=== PATIENT | female | born 1995 | race African-American/Black ===

== ENCOUNTER 2025-01-23 22:34 | Emergency (ER) | payer BC, SELFPAY ==
--- NOTE | ~2025-01-23 | CT_ITS ---
CT HEAD NON-CONTRAST Clinical History: Frontal headache Comparison: None Technique: Unenhanced axial images skull base to vertex Coronal, sagittal reformats CT images acquired with automatic exposure control for dose reduction DLP: 681 mGy-cm Findings: Sulci, ventricles: Unremarkable. No intracerebral hemorrhage. No evidence acute territorial infarct. No mass effect, midline shift. Bony calvarium intact. Visualized paranasal sinuses: Clear. Mastoid air cells: Clear. Partially empty sella. IMPRESSION: 1. No acute intracranial findings. Reviewed, dictated and finalized at location [facility]. [facility]
[2025-01-23 22:36] VITALS: BP 113/79; PULSE 72; RESP 14; TEMP 36.8; O2SAT 100
[2025-01-24 00:28] VITALS: BP 123/77; PULSE 74; RESP 16; O2SAT 99
[2025-01-24 00:31] VITALS: BP 130/88; PULSE 72; RESP 14; O2SAT 99
[2025-01-24 02:33] VITALS: BP 130/90; PULSE 84; RESP 14; O2SAT 100
--- NOTE | 2025-01-24 03:10 | ED_ITS ---
HPI - General Adult General Chief complaint: Headache Stated complaint: headache Time Seen by Provider: 01/24/25 02:51 History of Present Illness HPI narrative: This is a 29-year-old female presenting for a headache. Patient says for last 2 days she has had a frontal headache. She has checked her blood pressure home for this time is been elevated at . This prompted her to come to the emergency department. Patient says she gets headaches on a weekly basis. They are typically in the frontal region. They are not associated with visual changes. She is not confused or altered. She does not have any fevers chills nausea vomiting diarrhea. Related Data Allergies Allergy/AdvReac Type Severity Reaction Status Date / Time No Known Allergies Allergy Verified 01/23/25 22:43 Exam Narrative: APPEARANCE: No apparent distress. Head: atraumatic. 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 Cranial nerves 2-12 grossly intact. Sensation light touch, motor function cerebellar function intact for 4 extremities. Gait exam was normal. SKIN:: Warm, dry. Normal color PSYCHIATRIC: Normal affect Course Vital Signs Vital signs: Vital Signs Temperature 98.2 F 01/23/25 22:36 Pulse Rate 72 01/23/25 22:36 Respiratory Rate 14 01/23/25 22:36 Blood Pressure 113/79 01/23/25 22:36 Pulse Oximetry 100 01/23/25 22:36 Oxygen Delivery Room Air 01/23/25 22:36 Temperature 98.2 F 01/23/25 22:36 Pulse Rate 84 01/24/25 02:33 Respiratory Rate 14 01/24/25 02:33 Blood Pressure 130/90 01/24/25 02:33 Pulse Oximetry 100 01/24/25 02:33 Oxygen Delivery Room Air 01/23/25 22:36 Medical Decision Making [facility] Narrative Medical decision making narrative: -Course: 29-year-old female presenting with a frontal headache and concerns blood pressure. Here her blood pressures are a safe level. Her headaches are essentially her typical headache and responded to Tylenol. Her neurologic exam is normal. I am very comfortable with the patient following up with her primary care physician for further management of her headaches and possible hypertension. Patient in agreement with plan. Discharged. -DDX includes but is not limited to: Tension headache, migraine, sinus pressure, ICH, idiopathic intracranial hypertension Vital Signs Vital Signs: Vital Signs Temperature 98.2 F 01/23/25 22:36 Pulse Rate 72 01/23/25 22:36 Respiratory Rate 14 01/23/25 22:36 Blood Pressure 113/79 01/23/25 22:36 Pulse Oximetry 100 01/23/25 22:36 Oxygen Delivery Room Air 01/23/25 22:36 Temperature 98.2 F 01/23/25 22:36 Pulse Rate 84 01/24/25 02:33 Respiratory Rate 14 01/24/25 02:33 Blood Pressure 130/90 01/24/25 02:33 Pulse Oximetry 100 01/24/25 02:33 Oxygen Delivery Room Air 01/23/25 22:36 Discharge Plan Discharge Clinical Impression: Headache Patient Disposition: Home Condition: Stable Instructions: Antibiotic Form, Acute Headache (ED) Additional Instructions: You were seen in the ED for a headache. Please take Tylenol as needed. Please follow-up with your primary care physician in regards to your elevated blood pressures. You develop any new symptoms such as severe pain, visual changes or alterations in mental status please return to the ED for re-evaluation. Patient Language: Guamanian Follow-up/Referrals: Bert Eduardo MD [Physician, Family Practice] - 1 Week UNKNOWN,DOCTOR [Primary Care Provider]
--- NOTE | 2025-01-24 03:37 | ED_ITS ---
HPI - General Adult General Chief complaint: Headache Stated complaint: headache Time Seen by Provider: 01/24/25 02:51 History of Present Illness HPI narrative: This is a 21-year-old female presenting with headache. Patient has had a frontal headache for the last 4 days. Patient says that she does not typically get headaches on a she is hypo sleep. Headache is pounding in intensity. She has been taking Tylenol intermittently with some relief. No visual changes. No loss of consciousness. No trauma or fevers. Related Data Allergies Allergy/AdvReac Type Severity Reaction Status Date / Time No Known Allergies Allergy Verified 01/23/25 22:43 Exam Narrative: APPEARANCE: No apparent distress. Head: atraumatic. EYES: EOMI, PERRL NOSE: Atraumatic NECK: Trachea midline RESPIRATORY: No increased rate of breathing CARDIOVASCULAR: RRR, ABDOMINAL: Non-distended MUSCULOSKELETAl: No obvious deformities NEURO: Alert. Cranial nerves 2-12 grossly intact. Sensation light touch, motor function cerebellar function intact for 4 extremities. Gait exam was normal. SKIN:: Warm, dry. Normal color PSYCHIATRIC: Normal affect Course Vital Signs Vital signs: Vital Signs Temperature 98.2 F 01/23/25 22:36 Pulse Rate 72 01/23/25 22:36 Respiratory Rate 14 01/23/25 22:36 Blood Pressure 113/79 01/23/25 22:36 Pulse Oximetry 100 01/23/25 22:36 Oxygen Delivery Room Air 01/23/25 22:36 Temperature 98.2 F 01/23/25 22:36 Pulse Rate 84 01/24/25 02:33 Respiratory Rate 14 01/24/25 02:33 Blood Pressure 130/90 01/24/25 02:33 Pulse Oximetry 100 01/24/25 02:33 Oxygen Delivery Room Air 01/23/25 22:36 Medical Decision Making [facility] Narrative Medical decision making narrative: -Course: 21-year-old female with intermittent headaches presenting for a headache. She says this is different than her typical headache. CT of was obtained which did not reveal any hemorrhage hydrocephalus or mass effect. There was a partially empty sella which can be seen w/ idiopathic intracranial hypertension although she does not have any visual changes or pulsatile tinnitus. Patient will be discharged to follow-up with neurology. Given return precautions. -DDX includes but is not limited to: Migraine, tension headache, sinus headache, intracranial hemorrhage, cerebral mass Vital Signs Vital Signs: Vital Signs Temperature 98.2 F 01/23/25 22:36 Pulse Rate 72 01/23/25 22:36 Respiratory Rate 14 01/23/25 22:36 Blood Pressure 113/79 01/23/25 22:36 Pulse Oximetry 100 01/23/25 22:36 Oxygen Delivery Room Air 01/23/25 22:36 Temperature 98.2 F 01/23/25 22:36 Pulse Rate 84 01/24/25 02:33 Respiratory Rate 14 01/24/25 02:33 Blood Pressure 130/90 01/24/25 02:33 Pulse Oximetry 100 01/24/25 02:33 Oxygen Delivery Room Air 01/23/25 22:36 Discharge Plan Discharge Clinical Impression: Headache Patient Disposition: Home Condition: Stable Instructions: Antibiotic Form, Acute Headache (ED) Additional Instructions: You were seen in the emergency department for a headache. Please follow-up with the neurologist listed below for further management. If you develop any new symptoms such as visual changes or confusion or loss of conscious please return emergency department immediately. Patient Language: Albanian Follow-up/Referrals: Bert Eduardo MD [Physician, Family Practice] - 1 Week Vijay Patel MD [Physician, Neurology] - 1 Week Referral Note: SZYMANSKI, Partial empty sella on ct imaging. UNKNOWN,DOCTOR [Non-Staff]
[2025-01-24] MEDS: diphenhydrAMINE HCl CAP 25 MG CAPSULE PO (03:42)
[2025-01-24] MEDS: PROCHLORPERAZINE EDISYLATE 10 MG/2 ML VIAL IM (03:42)
[2025-01-24] MEDS: ACETAMINOPHEN 500 MG TABLET 1000 MG PO (03:42)
[2025-01-24 04:33] VITALS: PULSE 69; RESP 14; O2SAT 100
[2025-01-24] MEDS: KETOROLAC 30 MG/ML VIAL (*BKC) IM (04:45)
[2025-01-24 04:53] VITALS: BP 127/90; PULSE 81; RESP 14; O2SAT 100
== END 2025-01-24 04:52 | disposition home or self-care (01) ==
LOC: ANHED 01-24 03:49
PROVIDERS: Emergency Provider Emergency Medicine; PCP Internal Medicine
DX: R51.9 Headache, unspecified (principal)
CPT/HCPCS: 70450; 96372; 99284; A9270; J0780; J1885